=== PATIENT | female | born 1990 | race Caucasian/White ===

== ENCOUNTER 2018-01-30 13:40 | Inpatient (IN) | payer OTHER ==
[2018-01-30] VITALS (25 sets, daily range): BP systolic 106–143; BP diastolic 56–90; PULSE 74–103; TEMP 97.1–98.3
[~2018-01-30] VITALS: Ht 165.1 cm; Wt 83.2 kg
[~2018-01-30 13:40] MED LIST: IBU600 MG PO; PERCOCET 325 MG1 TA2 PO; PRENATA1 CTB
[2018-01-30 15:46] LABS: BASO % 0.2 % (0.0-2.0); EOS # 0.1 (0.0-0.7); EOS % 0.7 % (0-4.0); GRAN % 73.7 % (42.2-75.2); HEMOGLOBIN 12.5 g/dl (12.5-16.0); LYMPH % 18.1 % (20.0-51.0); MEAN CELL VOLUME 88 fl (80.0-100.0); MEAN CORPUSCULAR HEMOGLOBIN 30 pg (27.0-31.0); MEAN CORPUSCULAR HGB CONC 34 g/dl (33.0-37.0); MEAN PLATELET VOLUME 10.5 fl (7.4-10.4); MONO # 0.7 (0.1-0.6); MONO % 6.6 % (1.7-9.3); PLATELET COUNT 240 K/mm3 (130-400); RED BLOOD COUNT 4.22 M/mm3 (4.10-5.30); REDCELL DISTRIBUTION WIDTH-CV 12.8 % (11.5-14.5)
[2018-01-31] VITALS: BP 122/68; PULSE 97; TEMP 98.7
[2018-01-31 08:00] VITALS: BP 120/77; PULSE 85
[2018-01-31 16:02] VITALS: BP 116/68; PULSE 91
[2018-01-31 19:30] VITALS: BP 116/70; PULSE 86; TEMP 97.5
[2018-02-01 07:55] VITALS: BP 130/75; PULSE 80
[2018-02-01] MEDS ORDERED: IBU600 MG PO (08:49)
[2018-02-01] MEDS ORDERED: PERCOCET 325 MG1 TA2 PO (08:49)
== END 2018-02-01 18:25 | disposition home or self-care (01) | DRG 775 ==
LOC: LDRO 13:40 → LDR 15:00 → OB 15:00
PROVIDERS: Obstetrics & Gynecology
PROC: 10E0XZZ Delivery of Products of Conception, External Approach (ICD-10-PCS; principal; 2018-01-30)
PROC: 0W8NXZZ Division of Female Perineum, External Approach (ICD-10-PCS; 2018-01-30)
DX: O99.824 Streptococcus B carrier state complicating childbirth (principal); O77.0 Labor and delivery complicated by meconium in amniotic fluid; Z3A.39 39 weeks gestation of pregnancy; Z37.0 Single live birth
CPT/HCPCS: J1200; J2540; J2590; J2795; J7120

== ENCOUNTER → 2020-10-14 | Outpatient (CLI) | payer OTHER | END | disposition still patient (30) | LOC: ZCOL.LAB 01:24 | DX: Z20.822 Contact with and (suspected) exposure to COVID-19 (principal) ==

== ENCOUNTER 2020-10-17 07:07 | Inpatient (IN) | payer OTHER ==
[~2020-10-17] VITALS: Ht 165.1 cm; Wt 77.7 kg
[2020-10-17] VITALS (33 sets, daily range): BP systolic 92–157; BP diastolic 50–96; PULSE 61–98; TEMP 97.3–98
--- NOTE | 2020-10-17 07:12 | NUR ---
0712-G3L2 to LDR 5 for scheduled induction of labor. Patient denies complications or reason to believe she is in labor. Denies LOF or VB and reports good FM. Assisted into gown and placed on EFM. VSS. 0730-IV to RFA by Connie. Blood collected and sent to lab per protocol. LR infusing see EMAR. Patient reports "I feel lightheaded." Patient left lateral and head of bed lowered. Bolus infusing. VSS, see flow record. 0736-FHR decel down to 90bpm with spontaneous return to baseline Repositoned WR. 0740-FHR with late decel down to 90bpm with spontaneous return to baseline. RN remains at bedside. 0750-Patient up to void. Returns to bed WL 0755-SVE /-3 intact. 0804-Dr. Boston updated, see MD notification.
[2020-10-17 08:15] LABS: BASO % 0.4 % (0.0-2.0); EOS # 0.1 (0.0-0.7); EOS % 0.7 % (0-4.0); GRAN # 5.4 (1.4-6.5); GRAN % 64.7 % (42.2-75.2); HEMOGLOBIN 12.3 g/dl (12.5-16.0); LYMPH # 2.3 (1.2-3.4); LYMPH % 27.2 % (20.0-51.0); MEAN CELL VOLUME 90 fl (80.0-100.0); MEAN CORPUSCULAR HEMOGLOBIN 31 pg (27.0-31.0); MEAN CORPUSCULAR HGB CONC 34 g/dl (33.0-37.0); MEAN PLATELET VOLUME 10.7 fl (7.4-10.4); MONO # 0.5 (0.1-0.6); MONO % 6.4 % (1.7-9.3); PLATELET COUNT 224 K/mm3 (130-400); RED BLOOD COUNT 4.03 M/mm3 (4.10-5.30); REDCELL DISTRIBUTION WIDTH-CV 12.4 % (11.5-14.5)
[2020-10-17 08:18] LABS: HEMATOCRIT 36.2 % (37.0-47.0)
--- NOTE | 2020-10-17 08:20 | NUR ---
0820-Dr. Garcia on unit, requested MD to reviews strip.
--- NOTE | 2020-10-17 08:25 | NUR ---
0825-Dr. Boston to unit. Reviews FHR strip, in to see patient. Bedside sono done. Vertex presentation confirmed. Reviews plan of care with patient. Remains on unit at desk. 0840- orders to start pitocin per protocol. Pit started at 2mu/min. MD remains on unit. 0843-Dr. Boston on unit reviews monitor and gives order to "go slow" with pitocin induction. MD will be back over to AROM after sx.
--- NOTE | 2020-10-17 09:45 | NUR ---
0945-Dr. Boston back on unit. Reviews FHR monitor. No new orders.
--- NOTE | 2020-10-17 11:15 | NUR ---
1115-Dr. Boston on unit. Reviews FHR monitor. In to see patient. SVE by /. AROM clear fluid. Updated on plan of care.
--- NOTE | 2020-10-17 12:05 | NUR ---
1205-T.CIARRA Moreno notified of patients request for epidural.
--- NOTE | 2020-10-17 12:30 | NUR ---
1230-Patient reports feeling pushy with contractions. SVE 7/90/-1. Pit turned off. Dr. Boston updated, see MD notification. 1242-CIARRA Artis to patient room. Paitent sitting upright for epidural placement. RN remains at bedside holding EFM in place. 1250-Test dose by CIARRA Artis. Patient tolerated well, VSS, see flow record and anesthesia record. 1305-Dr. Boston updated on patients SVE 8-/0. MD gives order to start pitocin back. Pit on at 2mu. 1314-Updated MD, see MD notification. 1330-Dr. Boston on unit. 1334-SVE by MD /+1 Set up for delivery. 1338-Patient begins pushing with contraction. Moves vertex well. Difficulty tracing FHR with pushing efforts. RN frequently adjusts EFM. 1342-FHR audibly down, MD cuts midline episiotomy and patient begins pushing with contraction. Spontaneous delivery of head with nuchal first reduced by MD immediately followed by body. Viable male mouth and naares bulb suctioned and cord clamped x2 and cut by mother of . Care of infant assumed by DELORES Cordon. Apgars 5/9/9. taken to warmer for further assessment. 1345-Spontaneous delivery of intact placenta by MD. Fundal massage firm. Lochia WNL. Pitocin bolus per MD order and protocol. MD repairs midline episiotomy and 2nd degree laceration. Clover care provided. Updated on plan of care and safety.
[2020-10-18 01:00] VITALS: BP 123/57; PULSE 72; TEMP 98.1
[2020-10-18 05:30] VITALS: BP 125/59; PULSE 69; TEMP 97.9
[2020-10-18 07:16] LABS: HEMOGLOBIN 11.6 g/dl (12.5-16.0)
[2020-10-18 07:21] LABS: HEMATOCRIT 35.7 % (37.0-47.0)
[2020-10-18 07:57] VITALS: BP 113/62; PULSE 83; TEMP 97.9
[2020-10-18] MEDS ORDERED: IBU600 MG PO (09:04)
[2020-10-18] MEDS ORDERED: PERCOCET 325 MG1 TA2 PO (09:04)
[2020-10-18 11:23] VITALS: BP 107/60; PULSE 78; TEMP 97.9
--- NOTE | 2020-10-18 12:12 | NUR ---
Optical Effects Line Up Person offered congrats and a blessing with patient.
== END 2020-10-18 15:15 | disposition home or self-care (01) | DRG 807 ==
LOC: LDR 07:10 → OB 14:30
PROVIDERS: ADMIT Obstetrics & Gynecology
PROC: 10E0XZZ Delivery of Products of Conception, External Approach (ICD-10-PCS; principal; 2020-10-17)
PROC: 0KQM0ZZ Repair Perineum Muscle, Open Approach (ICD-10-PCS; 2020-10-17)
PROC: 10907ZC Drainage of Amniotic Fluid, Therapeutic from Products of Conception, Via Natural or Artificial Opening (ICD-10-PCS; 2020-10-17)
PROC: 0W8NXZZ Division of Female Perineum, External Approach (ICD-10-PCS; 2020-10-17)
DX: O99.52 Diseases of the respiratory system complicating childbirth (principal); Z37.0 Single live birth; O70.1 Second degree perineal laceration during delivery; Z3A.39 39 weeks gestation of pregnancy; Z20.828 Contact with and (suspected) exposure to other viral communicable diseases; O76 Abnormality in fetal heart rate and rhythm complicating labor and delivery
CPT/HCPCS: J2590; J2795; J7120